=== PATIENT | female | born 1975 | race Caucasian/White ===

== ENCOUNTER → 2016-10-19 | Outpatient (CLI) | payer BC ==
--- NOTE | 2016-10-19 22:08 | MR ---
EXAMINATION TYPE: MR knee LT wo con DATE OF EXAM: 10/19/2016 8:44 PM COMPARISON: NONE HISTORY: Pain TECHNIQUE: Multiplanar, multisequence imaging of the left knee is performed without IV contrast. FINDINGS: MEDIAL MENISCUS: Extensive degeneration posterior horn medial meniscus without evidence for tear. LATERAL MENISCUS: Anterior and posterior horns are intact without tear. CRUCIATE LIGAMENTS: The anterior and posterior cruciate ligaments are intact and unremarkable. COLLATERAL LIGAMENTS: The medial collateral ligament and lateral collateral ligament complex are inta ct and unremarkable. EXTENSOR MECHANISM: Visualized quadriceps and patellar tendons are intact. EFFUSION: No significant suprapatellar joint effusion. POPLITEAL CYST: No popliteal/serrano cyst. TRICOMPARTMENT SPACES: Intact CARTILAGE: Intact BONE MARROW SIGNAL: No focal abnormal marrow signal is appreciated. OTHER: No additional significant abnormality is appreciated. IMPRESSION: Extensive degeneration posterior horn medial meniscus without evidence for tear. Otherwise unremarkab le.
== END | disposition home or self-care (01) ==
LOC: RADMRIMAIN 20:06
PROVIDERS: ATTEND Family Medicine
DX: M23.322 Other meniscus derangements, posterior horn of medial meniscus, left knee (principal)

== ENCOUNTER → 2017-01-07 | Outpatient (CLI) | payer BC ==
[2017-01-07 16:29] LABS: CH 32.1; CHCM 33.2; HCT 40.3 % (34.0-46.0); HDW 2.43; HGB 13.7 gm/dL (11.4-16.0); MCH 33.1 pg (25.0-35.0); MCHC 34.1 g/dL (31.0-37.0); MCV 97.3 fL (80.0-100.0); Mean Platelet Volume 6.9; RBC 4.14 m/uL (3.80-5.40); RDW 12.8 % (11.5-15.5); WBC 7.5 k/uL (3.8-10.6)
== END | disposition home or self-care (01) ==
LOC: LABPAT 15:40
PROVIDERS: ATTEND Otolaryngology
DX: Z01.812 Encounter for preprocedural laboratory examination (principal)
CPT/HCPCS: 85027

== ENCOUNTER 2017-01-11 10:01 | Day surgery (SDC) | payer BC ==
[2017-01-08 11:12] VITALS: BMI 25.0
--- NOTE | 2017-01-11 07:47 | HP ---
CHIEF COMPLAINT: Lesion on the right ear, suspect malignancy. HISTORY OF PRESENT ILLNESS: This patient is a pleasant 41-year-old female who was seen in my office recently for evaluation of a suspicious lesion of the right ear. This lesion has apparently been there for several months and the patient stated at times it is quite painful and she is not actually able to put pressure on the area when she sleeps at night. She denies that the area bleeds, but again states that it is extremely painful to touch. It has not been treated by her family physician with any type of medications. At the time patient was seen in my office clinical examination of the patient's right ear revealed a maculopapular well circumscribed scaly, extremely tender lesion on the superior helix of the patient's right ear. It is difficult to determine whether this lesion represents a malignancy or a benign lesion such as chondrodermatitis helicus. It is recommended the patient undergo a wedge excision of this lesion under general anesthesia. Past medical history reveals that the patient has ALLERGIES to certain antibiotics such as BACTRIM and also medications such as IBUPROFEN, TORADOL, AND ASPIRIN. Current medications include Xanax, Vicodin and Adipex. Previous surgeries include a hysterectomy, breast reduction, benign lymph node removed, appendectomy, bone spur removed, laparoscopic surgery, and benign breast biopsy. The review of systems is completely unremarkable. PHYSICAL EXAMINATION: This patient is a pleasant 41-year-old female who is alert and cooperative. HEENT: Patient is normocephalic. Tympanic membranes are normal. Middle ear space is free of any fluid or infection. Examination of the patient's right ear reveals that there is a maculopapular scaly extremely tender raised lesion located on the superior helical rim of the right ear. No other suspicious lesions are noted in the right or left ear. Tympanic membrane, middle ear spaces are free of any fluid or infection. Pupils equal, round and reactive to light and accommodation. Extraocular movements within normal limits. Intranasal examination reveals moderate septal deviation with compensatory hypertrophy of the inferior turbinates bilaterally. Examination of the oropharynx, cranial nerves II through XII and the remainder of the head and neck exam are unremarkable. CHEST AND CARDIOVASCULAR: Both lung mora are clear to percussion and auscultation. Patient is in regular sinus rhythm. S1, S2 are present without evidence of any murmurs, S3s, or S4s. Peripheral pulses are bilaterally symmetrical and within normal limits. ABDOMEN: There is no evidence of any masses, megaly or tenderness. The abdomen is soft. SKIN: Unremarkable. Musculoskeletal and neurological are within normal limits. Pelvic and Rectal exam are deferred at this time because the patient has this done on regular basis at her family physician's office. The remainder of the physical exam is unremarkable. IMPRESSION: Lesion of the superior helix of the right ear, suspect malignancy. PLAN: The patient is scheduled to undergo a wedge excision of lesion of the superior helix of the right ear under general anesthesia in the morning. Attention RNs in the presurgical area: I have not ordered any presurgical prophylactic antibiotics for this patient. I would like for the patient to receive 1000 mg of Ofirmev IV as soon as intravenous line has been established. I am not able to input orders into the system because the Hospital's [facility] System has malfunctioned. If the pharmacy department sends any presurgical prophylactic antibiotics to the presurgical area for this patient they should be cancelled and returned to the pharmacy department and make sure the patient' s account is credited appropriately. ( ) OSCAR
[~2017-01-11 10:01] MED LIST: DEXAMETHASONE SOD PHOSPHATE 10 MG/ML 1 ML VIAL IV ONE; HYDROmorphone 1 MG/ML 1 ML SYRINGE IVP PRN; LACTATED RINGERS 1,000 ML IV SCH; LIDOCAINE 1% 20 ML VIAL (10MG/ML) FOR IV START INTRADERMA PRN; ONDANSETRON 4 MG/2 ML VIAL IVP ONE; SCOPOLAMINE 1.5MG/72HR PATCH TRANSDERM ONE
[2017-01-11] MEDS ORDERED: ACETAMINOPHEN IV (For NPO) 1,000 MG in EMPTY BAG 1 BAG IVPB STA (10:10)
[2017-01-11 10:33] VITALS: RESP 18; TEMP 97.9
[2017-01-11 11:00] LABS: Glucose,Whole Blood 82 mg/dL (75-99)
[2017-01-11] MEDS ORDERED: LIDOCAINE 1% INJ 10MG/ML (20 ML MDV) ONE (11:55)
[2017-01-11] MEDS ORDERED: PROPOFOL 10 MG/ML 20 ML VIAL IV ONE (11:55)
[2017-01-11] MEDS ORDERED: ePHEDrine 50 MG/ML 1 ML AMP ONE (11:55)
[2017-01-11] MEDS ORDERED: fentaNYL (PF) 50 MCG/ML 2 ML AMP ONE (11:55)
[2017-01-11] MEDS ORDERED: MIDAZOLAM 2 MG/2 ML VIAL ONE (11:55)
[2017-01-11] MEDS ORDERED: PHENYLEPHRINE-0.9% NACL SYG 1 MG/10 ML SYRINGE ONE (11:55)
[2017-01-11] MEDS ORDERED: BUPIVACAINE (PF) 0.5% 30 ML VIAL SQ ONE ×2 (12:29)
[2017-01-11] MEDS ORDERED: BACITRACIN 500 UNIT/GM OINT 28.4 GM TUBE TOPICAL ONE (13:36)
[2017-01-11] MEDS ORDERED: LACTATED RINGERS 1,000 ML IV ONE (13:52)
[2017-01-11 14:18] VITALS: BP 117/65; PULSE 90
--- NOTE | 2017-01-12 05:13 | OP ---
DATE OF SURGERY: 01/11/2017 SURGEON: Devyn Maravilla MD PATIENT TRANSPORT ORDERLY: PREOPERATIVE DIAGNOSIS: A 4 mm lesion of the superior helix of the right ear. POSTOPERATIVE DIAGNOSIS: A 4 mm lesion of the superior helix of the right ear, final pathology pending. OPERATIVE PROCEDURE: Complete wedge excision of 4 mm lesion of the superior helix of the left ear with reconstruction via Angel's triangles. ANESTHESIA: General. COMPLICATIONS: None. ESTIMATED BLOOD LOSS: Less than 10 mL. OPERATIVE PROCEDURE: The patient was placed on the operating room table in supine position. After uneventful induction and endotracheal intubation, satisfactory general anesthesia was obtained. Next, the patient's right ear was draped and prepped in usual and customary fashion. Next, the lesion in question which was located on the superior helix of the right ear was examined and identified. It was decided to remove this lesion via a wedge excision. Therefore, using a ImpactRxman marking pen, the proposed wedge excision was designed so as to extend from the helical rim of the right down to the mid portion of the ( ). Next the propose Angel's triangles, which were to be excised were outlined in the usual fashion using the ImpactRxman marking pen. Next using a # 11 stab blade initially the wedge excision was performed by using a through-and- through incision from skin to skin beginning at the apex of the wedge working to the helical rim superiorly and subsequently doing the same along the inferior limb of the outlined incision. The wedge itself was sent to pathology , untagged, for final examination. Next, the Angel's triangles were excised using the #11 scalpel in the usual and customary fashion. Having done this, this allowed the ear to fall back into its natural position without any buckling or coning of the ear or cupping of the ear. The wound defect was closed in multiple layers using 5-0 rapid absorbing Vicryl to reapproximate the cartilage edges of the Angel's triangles and of the main incision. Next, the anterior skin was approximately using 5-0 rapid absorbing Vicryl in an interrupted buried fashion. Next, the helical rim was approximated exactly using 5-0 rapid absorbing Vicryl suture. The posterior skin was also approximated using 5-0 rapid absorbing Vicryl in an interrupted buried fashion. There were several small tears of the skin posteriorly and it was decided rather than attempt to repair these. These were appropriately brought together using the Dermabond tissue glue. Several additional 5-0 rapid absorbing sutures were placed in the helical rim in a buried interrupted fashion. At this point, the procedure was terminated. The cosmetic result of the resection and reconstruction was felt to be acceptable. Total operating time was approximately 1 hour and 35 minutes. The usual operating time for a lesion this size was approximately 35 to 40 minutes. The reason for the extended time was because of the reconstruction necessary using the Angel's triangles in an effort to bring the edges of the wound together without creating any type of cup defect or buckling of the cartilage. Estimated blood loss was less than 10 mL. The patient tolerated the procedure well and was returned to the recovery room in satisfactory condition. OSCAR
== END 2017-01-11 14:43 | disposition home or self-care (01) ==
LOC: OR 10:01
PROVIDERS: ATTEND Otolaryngology
DX: H61.001 Unspecified perichondritis of right external ear (principal); L57.8 Other skin changes due to chronic exposure to nonionizing radiation; M79.7 Fibromyalgia; M54.2 Cervicalgia; M54.9 Dorsalgia, unspecified; G89.29 Other chronic pain; Z88.6 Allergy status to analgesic agent; Z88.1 Allergy status to other antibiotic agents; Z88.5 Allergy status to narcotic agent; Z88.2 Allergy status to sulfonamides; Z79.891 Long term (current) use of opiate analgesic; Z79.899 Other long term (current) drug therapy
CPT/HCPCS: 88305; 11440; J2250; J1100; J2405; J2001; J3010; J0131; J2370; J2704

== ENCOUNTER → 2017-02-25 | Outpatient (CLI) | payer BC ==
[2017-02-25 17:09] LABS: Hepatitis B Surface Ag Index 0.05
[2017-02-25 17:15] LABS: Hepatitis B Core IgM Index 0.04
[2017-02-25 17:26] LABS: Hepatitis C Virus IgG Ab Negative (Negative); Hepatitis C Virus IgG Index 0.03
[2017-02-26 02:08] LABS: Treponemal Ab Non-Reactive (Non-Reactive)
== END | disposition home or self-care (01) ==
LOC: LABWHC1 16:08
PROVIDERS: ATTEND Obstetrics & Gynecology
DX: Z11.3 Encounter for screening for infections with a predominantly sexual mode of transmission (principal)
CPT/HCPCS: 36415; 80074; 86780; 87390

== ENCOUNTER → 2017-03-22 | Outpatient (CLI) | payer BC ==
--- NOTE | 2017-03-22 12:13 | XR ---
EXAMINATION TYPE: XR foot complete LT DATE OF EXAM: 03/22/2017 CLINICAL HISTORY: pain TECHNIQUE: Frontal, lateral and oblique images of the left foot are obtained. COMPARISON: None. FINDINGS: There is no acute fracture/dislocation evident. Mild hallux valgus deformity at the first metatarsophalangeal joint. The overlying soft tissue appears unremarkable. IMPRESSION: There is no acute fracture or dislocation. ICD 10 NO FRACTURE, INITIAL EVALUATION
== END | disposition home or self-care (01) ==
LOC: RADXRMAIN 11:54
PROVIDERS: ATTEND Podiatrist Foot Surgery
DX: M20.12 Hallux valgus (acquired), left foot (principal); M79.672 Pain in left foot

== ENCOUNTER → 2018-08-17 | Outpatient (CLI) | payer OTHER ==
--- NOTE | 2018-08-18 12:16 | MR ---
EXAMINATION TYPE: MR cervical spine wo con DATE OF EXAM: 08/17/2018 COMPARISON: 03/31/2016 HISTORY: Neck pain, headaches, dizziness, BUE numbness, hx of falls/whiplash TECHNIQUE: Multiplanar, multisequence images of the cervical spine were acquired. C2-C3: No evidence for degenerative disc disease. No disc bulge/herniation or protrusion. No Canal stenosis. Foramina are patent bilaterally. C3-C4: No evidence for degenerative disc disease. No disc bulge/herniation or protrusion. No Canal stenosis. Foramina are patent bilaterally. C4-C5: No evidence for degenerative disc disease. No disc bulge/herniation or protrusion. No Canal stenosis. Foramina are patent bilaterally. C5-C6: There is a right paracentral disc herniation measuring approximately 11 mm. There is distortio n of the thecal sac which appears similar to the prior exam. There are abuts the anterior margin the spinal cord with mild mass effect. Hypertrophic change of the uncovertebral joint on the right result s in mild right foraminal encroachment. C6-C7: Degenerative disc disease with broad-based central disc protrusion slightly greater paracentra lly to the left. There is mild effacement of thecal sac. No evidence of neural foraminal encroachment . Findings stable. C7-T1: Right paracentral disc herniation appears stable. Effaces the thecal sac. Neural foramina jaime in patent. No spinal cord contact. Findings stable. Cervical segments are intact. There is normal alignment. Cervical spinal cord is of normal signal. Craniovertebral junction relationships are within normal limits. IMPRESSION: 1. Multilevel degenerative disc disease is stable relative the prior exam. 2. Multilevel disc herniation or protrusions as discussed above also appears stable with the most mar ked findings at C5-C6 which abuts the anterior margin the spinal cord and does result in some mass ef fect upon the spinal cord which is similar to the prior exam.
== END | disposition home or self-care (01) ==
LOC: RADMRIMAIN 17:16
PROVIDERS: ATTEND Physical Medicine & Rehabilitation
DX: M50.222 Other cervical disc displacement at C5-C6 level (principal); M50.122 Cervical disc disorder at C5-C6 level with radiculopathy; G89.4 Chronic pain syndrome; M79.7 Fibromyalgia; F45.42 Pain disorder with related psychological factors
CPT/HCPCS: 72141

== ENCOUNTER → 2019-04-10 | Outpatient (CLI) | payer OTHER ==
--- NOTE | 2019-04-10 09:40 | MM ---
Reason for exam: history of breast augmentation, asymptomatic. Baseline mammogram. History: Patient had first child at age 34. Family history of breast cancer in paternal cousin and breast cancer in paternal aunt. Reductions of both breasts. Physical Findings: Nurse Summary: 1cm nodule in the left breast at 8 o'clock (nurse kp). MG 3D Diag Mammo W/Cad SAMIA Bilateral CC and MLO view(s) were taken. The breast tissue is heterogeneously dense. This may lower the sensitivity of mammography. Post mammoplasty changes. Bilateral areas of focal asymmetry persist to varying degrees with 3D. Palpable marker on the left along the lower inner quadrant. These results were verbally communicated with the patient and result sheet given to the patient on 04/10/19. ASSESSMENT: Incomplete: need additional imaging evaluation, BI-RAD 0 RECOMMENDATION: Ultrasound of both breasts.
--- NOTE | 2019-04-10 09:43 | USB ---
Reason for exam: additional evaluation requested from abnormal screening. History: Patient had first child at age 34. Family history of breast cancer in paternal cousin and breast cancer in paternal aunt. Reductions of both breasts. Physical Findings: Breast exam preformed at baseline screening. US Breast BILAT Right complete breast ultrasound includes all four quadrants, the retroareolar region and axilla. Finding demonstrates a 0.4 x 0.3 x 0.2cm cystic, benign lesion at 4 o'clock and a 0.4 x 0.3 x 0.2cm lymph node at 8 o'clock, questionable fatty hilum. Left complete breast ultrasound includes all four quadrants, the retroareolar region and axilla. Finding demonstrates no cystic or solid lesion seen. 6 month follow up recommended. These results were verbally communicated with the patient and result sheet given to the patient on 04/10/19. ASSESSMENT: Probably benign, BI-RAD 3 RECOMMENDATION: Follow-up diagnostic mammogram of both breasts in 6 months.
== END | disposition home or self-care (01) ==
LOC: RADMAMWWP 07:44
PROVIDERS: ATTEND Obstetrics & Gynecology
DX: R92.8 Other abnormal and inconclusive findings on diagnostic imaging of breast (principal); N64.4 Mastodynia; N63.24 Unspecified lump in the left breast, lower inner quadrant
CPT/HCPCS: 77062; 77066

== ENCOUNTER 2019-11-22 13:29 | Emergency (ER) | payer OTHER ==
[2019-11-22 13:52] VITALS: RESP 18
[2019-11-22] MEDS ORDERED: PANTOPRAZOLE 40 MG/10 ML VIAL IVP STA (14:08)
[2019-11-22] MEDS ORDERED: SODIUM CHLORIDE 0.9% 1,000 ML IV STA ×2 (14:08)
[2019-11-22] MEDS ORDERED: ONDANSETRON 4 MG/2 ML VIAL IVP STA (14:08)
--- NOTE | 2019-11-22 14:14 | ED ---
Abdominal Pain HPI - General Chief Complaint: Abdominal Pain Stated Complaint: abd pain/fever/dizziness Time Seen by Provider: 11/22/19 13:55 Source: patient, RN notes reviewed, old records reviewed Mode of arrival: ambulatory Limitations: no limitations - History of Present Illness Initial Comments: Iman is a 44-year-old female who presents emergency department today after a visit from a telemetry physician today with multiple complaints. She states she's had a fever off and on for the past 3 weeks, complains of some intermittent abdominal pain, with diarrhea and nausea. She also states that she had initially an upper eye infection that has now cleared up with the use of topical antibiotics a few weeks ago. She states that she was sent here for further evaluation due to persistent fever. She denies any known exposures to COVID contacts. Patient states that she does have a minor occasional cough. She is taking Motrin and Tylenol throughout the past 3 weeks almost daily. Her fevers have been on 100.4. She also reports that she has a splatter pattern of her rash over her abdomen down her leg for one week. She denies any exposure that she is aware of chemicals. She was working with a pool. Patient states that the rash is so mewhat puritic. - Related Data Home Medications Medication Instructions Recorded Confirmed ALPRAZolam 0.5 mg PO BID PRN 04/25/15 01/08/17 Acetaminophen Tab [Tylenol Tab] 650 mg PO Q4H PRN 01/08/17 01/08/17 Phentermine HCl [Adipex-P] 37.5 mg PO QAM 01/08/17 01/08/17 oxyCODONE-APAP 7.5-325MG [Percocet 1 tab PO Q6H PRN 01/08/17 01/08/17 7.5-325 mg] Previous Rx's Medication Instructions Recorded Mupirocin 2% Oint [Bactroban 2% 1 applic TOPICAL TID #60 gm 11/22/19 Oint] Ondansetron Odt [Zofran Odt] 4 mg PO Q8HR PRN #12 tab 11/22/19 Allergies Allergy/AdvReac Type Severity Reaction Status Date / Time aspirin Allergy Anaphylaxis Verified 11/22/19 13:52 ketorolac tromethamine Allergy Dyspnea Verified 11/22/19 13:52 [From Toradol] sulfamethoxazole Allergy Dyspnea, Verified 11/22/19 13:52 [From Bactrim] RASH trimethoprim [From Bactrim] Allergy Dyspnea, Verified 11/22/19 13:52 RASH Review of Systems ROS Statement: Those systems with pertinent positive or pertinent negative responses have been documented in the HPI. ROS Other: All systems not noted in ROS Statement are negative. Past Medical History Past Medical History: Cancer, Fibromyalgia, Musculoskeletal Disorder Additional Past Medical History / Comment(s): PRE-CA UTERUS, SKIN CA. CHRONIC Neck, Back Pain. VARICOSE VEINS. PAIN RT EAR D/T CHONDRODERMATITIS. History of Any Multi-Drug Resistant Organisms: None Reported Past Surgical History: Appendectomy, Breast Surgery, Hysterectomy, Orthopedic Surgery, Uterine Ablation Additional Past Surgical History / Comment(s): RT WRIST; EXC LUMP NECK. LAPAROSCOPIC PROC. BREAST REDUCTION. Past Anesthesia/Blood Transfusion Reactions: Motion Sickness, Postoperative Nausea & Vomiting (PONV) Past Psychological History: No Psychological Hx Reported Smoking Status: Never smoker Past Alcohol Use History: Occasional Past Drug Use History: None Reported - Past Family History Mother Family Medical History: Cancer Father Family Medical History: Deep Vein Thrombosis (DVT) General Exam - General Exam Comments Initial Comments: This is alert and oriented 44-year-old male. No significant distress. Limitations: no limitations General appearance: alert, in no apparent distress Head exam: Present: atraumatic, normocephalic, normal inspection Eye exam: Present: normal appearance, PERRL, EOMI. Absent: scleral icterus, conjunctival injection, periorbital swelling ENT exam: Present: normal exam, mucous membranes moist Neck exam: Present: normal inspection. Absent: tenderness, meningismus, lymphadenopathy Respiratory exam: Present: normal lung sounds bilaterally Cardiovascular Exam: Present: regular rate GI/Abdominal exam: Present: soft, normal bowel sounds, other (darkened splattered pattern erythematous rash with area of central desquamation measuring 4cm by 4cm. ). Absent: distended, tenderness, guarding, rebound, rigid Extremities exam: Present: normal inspection, full ROM, normal capillary refill. Absent: tenderness, pedal edema, joint swelling, calf tenderness Back exam: Present: normal inspection, full ROM Neurological exam: Present: alert, oriented X3, CN II-XII intact Psychiatric exam: Present: normal affect, normal mood Skin exam: Present: warm, dry, intact, normal color. Absent: rash Course Vital Signs 11/22/19 13:49 Temperature 98.3 F Pulse Rate 73 Respiratory 18 Rate Blood Pressure 112/73 O2 Sat by Pulse 100 Oximetry Medical Decision Making - Medical Decision Making This is a well-appearing 44-year-old female who presents emergency department today for multiple complaints. She is complaining of intermittent fever for 3 weeks, nausea and stomach as well as minor cough. She states that she was somewhat concerning for Coban. Patient did have Coban swab labwork completed today. Laboratory was reviewed and relatively unremarkable. She initially had an elevated potassium at the scene moist. Redraw was 4.4. Urine sample will have urine culture completed was a blood culture was completed. Patient's CBC is unremarkable. Chest x-ray was clear and KUB shows a normal bowel gas pattern with moderate stool in the right side. She has no guarding or rigidity or tenderness. Excess at this time with lab values being normal that Patient follow up with her primary care doctor for further evaluation any worsening signs or symptoms occur to return. Patient is agreeable to this. She does have this area of rash which seems consistent with a chemical burn over her abdomen splatter-like pattern. She was working with chemicals. Discussed using antibiotic ointment over the area just following up with primary care doctor's well. Patient is understand treatment plan will comply. Return parameters were discussed. - Lab Data Result diagrams: 11/22/19 14:45 11/22/19 16:00 Lab Results 11/22/19 11/22/19 11/22/19 Range/Units 14:45 14:45 14:45 WBC 6.4 (3.8-10.6) k/uL RBC 4.54 (3.80-5.40) m/uL Hgb 14.3 (11.4-16.0) gm/dL Hct 43.8 (34.0-46.0) % MCV 96.7 (80.0-100.0) fL MCH 31.4 (25.0-35.0) pg MCHC 32.5 (31.0-37.0) g/dL RDW 12.9 (11.5-15.5) % Plt Count 295 (150-450) k/uL Neutrophils % 57 % Lymphocytes % 32 % Monocytes % 5 % Eosinophils % 3 % Basophils % 1 % Neutrophils # 3.6 (1.3-7.7) k/uL Lymphocytes # 2.1 (1.0-4.8) k/uL Monocytes # 0.3 (0-1.0) k/uL Eosinophils # 0.2 (0-0.7) k/uL Basophils # 0.0 (0-0.2) k/uL Sodium 135 L (137-145) mmol/L Potassium 6.5 H* (3.5-5.1) mmol/L Chloride 104 (98-107) mmol/L Carbon Dioxide 24 (22-30) mmol/L Anion Gap 7 mmol/L BUN 18 H (7-17) mg/dL Creatinine 0.70 (0.52-1.04) mg/dL Est GFR (CKD-EPI)AfAm >90 (>60 ml/min/1.73 sqM) Est GFR (CKD-EPI)NonAf >90 (>60 ml/min/1.73 sqM) Glucose 96 (74-99) mg/dL Plasma Lactic Acid Tc (0.7-2.0) mmol/L Calcium 9.9 (8.4-10.2) mg/dL Magnesium 2.0 (1.6-2.3) mg/dL Total Bilirubin 1.1 (0.2-1.3) mg/dL AST 39 H (14-36) U/L ALT 17 (4-34) U/L Alkaline Phosphatase 32 L (38-126) U/L Lactate Dehydrogenase 841 H (313-618) U/L Troponin I <0.012 (0.000-0.034) ng/mL C-Reactive Protein <5.0 (<10.0) mg/L Total Protein 8.5 H (6.3-8.2) g/dL Albumin 5.0 (3.5-5.0) g/dL Amylase 46 (30-110) U/L Lipase 74 (23-300) U/L Urine Color Urine Appearance (Clear) Urine pH (5.0-8.0) Ur Specific [place] (1.001-1.035) Urine Protein (Negative) Urine Glucose (UA) (Negative) Urine Ketones (Negative) Urine Blood (Negative) Urine Nitrite (Negative) Urine Bilirubin (Negative) Urine Urobilinogen (<2.0) mg/dL Ur Leukocyte Esterase (Negative) Urine WBC (0-5) /hpf Ur Squamous Epith Cells (0-4) /hpf Urine Bacteria (None) /hpf Urine Mucus (None) /hpf 11/22/19 11/22/19 11/22/19 Range/Units 14:45 15:05 16:00 WBC (3.8-10.6) k/uL RBC (3.80-5.40) m/uL Hgb (11.4-16.0) gm/dL Hct (34.0-46.0) % MCV (80.0-100.0) fL MCH (25.0-35.0) pg MCHC (31.0-37.0) g/dL RDW (11.5-15.5) % Plt Count (150-450) k/uL Neutrophils % % Lymphocytes % % Monocytes % % Eosinophils % % Basophils % % Neutrophils # (1.3-7.7) k/uL Lymphocytes # (1.0-4.8) k/uL Monocytes # (0-1.0) k/uL Eosinophils # (0-0.7) k/uL Basophils # (0-0.2) k/uL Sodium (137-145) mmol/L Potassium 4.4 (3.5-5.1) mmol/L Chloride (98-107) mmol/L Carbon Dioxide (22-30) mmol/L Anion Gap mmol/L BUN (7-17) mg/dL Creatinine (0.52-1.04) mg/dL Est GFR (CKD-EPI)AfAm (>60 ml/min/1.73 sqM) Est GFR (CKD-EPI)NonAf (>60 ml/min/1.73 sqM) Glucose (74-99) mg/dL Plasma Lactic Acid Tc 0.9 (0.7-2.0) mmol/L Calcium (8.4-10.2) mg/dL Magnesium (1.6-2.3) mg/dL Total Bilirubin (0.2-1.3) mg/dL AST (14-36) U/L ALT (4-34) U/L Alkaline Phosphatase (38-126) U/L Lactate Dehydrogenase (313-618) U/L Troponin I (0.000-0.034) ng/mL C-Reactive Protein (<10.0) mg/L Total Protein (6.3-8.2) g/dL Albumin (3.5-5.0) g/dL Amylase (30-110) U/L Lipase (23-300) U/L Urine Color Light Yellow Urine Appearance Clear (Clear) Urine pH 6.0 (5.0-8.0) Ur Specific [place] 1.009 (1.001-1.035) Urine Protein Negative (Negative) Urine Glucose (UA) Negative (Negative) Urine Ketones Negative (Negative) Urine Blood Trace H (Negative) Urine Nitrite Negative (Negative) Urine Bilirubin Negative (Negative) Urine Urobilinogen <2.0 (<2.0) mg/dL Ur Leukocyte Esterase Negative (Negative) Urine WBC 1 (0-5) /hpf Ur Squamous Epith Cells 3 (0-4) /hpf Urine Bacteria Occasional H (None) /hpf Urine Mucus Rare H (None) /hpf 11/22/19 15:16 EKG performed at 1500 and shows normal sinus rhythm and normal EKG. Ventricular rate of 64 bpm. TN interval is 126 ms. QRS duration 74 ms. QT QTc is 398/410 ms. - Radiology Data Radiology results: report reviewed Chest x-ray is negative for any acute cardiopulmonary process. No evidence of free air or bowel obstruction. Mild stool in the right side of the abdomen. Disposition Clinical Impression: Chemical burn, Nausea, Hx of fever Disposition: HOME SELF-CARE Condition: Good Instructions (If sedation given, give patient instructions): Acute Nausea and Vomiting (ED) Additional Instructions: Patient is close follow-up with primary care physician in regards to cultures. Return to the emergency department if any alarming signs or symptoms occur. Prescriptions: Mupirocin 2% Oint [Bactroban 2% Oint] 1 applic TOPICAL TID #60 gm Ondansetron Odt [Zofran Odt] 4 mg PO Q8HR PRN #12 tab PRN Reason: Nausea Is patient prescribed a controlled substance at d/c from ED?: No Referrals: Yan Bolton DO [Primary Care Provider] - 1-2 days Time of Disposition: 16:46
[2019-11-22 15:04] LABS: Basophils % (A) 1 %; Eosinophils # (A) 0.2 k/uL (0-0.7); Eosinophils % (A) 3 %; HCT 43.8 % (34.0-46.0); HGB 14.3 gm/dL (11.4-16.0); Lymphocytes # (A) 2.1 k/uL (1.0-4.8); Lymphocytes % (A) 32 %; MCH 31.4 pg (25.0-35.0); MCHC 32.5 g/dL (31.0-37.0); MCV 96.7 fL (80.0-100.0); Mean Platelet Volume 6.7; Monocytes # (A) 0.3 k/uL (0-1.0); Monocytes % (A) 5 %; Neutrophils # (A) 3.6 k/uL (1.3-7.7); Neutrophils % (A) 57 %; Platelet Count 295 k/uL (150-450); RBC 4.54 m/uL (3.80-5.40); RDW 12.9 % (11.5-15.5); WBC 6.4 k/uL (3.8-10.6)
[2019-11-22 15:16] LABS: ALT 17 U/L (4-34); AST 39 U/L (14-36); African American GFR (CKD) >90 (>60 ml/min/1.73 sqM); Alkaline Phosphatase 32 U/L (38-126); Amylase 46 U/L (30-110); Anion Gap 7 mmol/L; Blood Urea Nitrogen 18 mg/dL (7-17); C Reactive Protein <5.0 mg/L (<10.0); Calcium 9.9 mg/dL (8.4-10.2); Carbon Dioxide 24 mmol/L (22-30); Chloride 104 mmol/L (98-107); Glucose 96 mg/dL (74-99); LDH 841 U/L (313-618); Non-African American GFR(CKD) >90 (>60 ml/min/1.73 sqM); Sodium 135 mmol/L (137-145); Total Bilirubin 1.1 mg/dL (0.2-1.3); Total Protein 8.5 g/dL (6.3-8.2)
[2019-11-22 15:18] LABS: Potassium 6.5 mmol/L (3.5-5.1)
[2019-11-22 15:19] LABS: Appearance,Urine Clear (Clear); Bacteria,Urine Occasional /hpf; Bilirubin,Urine Negative (Negative); Blood,Urine Trace (Negative); Color,Urine Light Yellow; Glucose,Urine (UA) Negative (Negative); Ketones,Urine Negative (Negative); Leukocyte Esterase,Urine Negative (Negative); Mucus,Urine Rare /hpf; Nitrite,Urine Negative (Negative); Protein,Urine Negative (Negative); Specific Gravity,Urine 1.009 (1.001-1.035); Squamous Epithelial Cell,Urine 3 /hpf (0-4); Urobilinogen,Urine <2.0 mg/dL (<2.0); WBC,Urine 1 /hpf (0-5)
--- NOTE | 2019-11-22 15:22 | XR ---
EXAMINATION TYPE: XR chest 2V DATE OF EXAM: 11/22/2019 COMPARISON: None HISTORY: 44-year-old female with abdominal pain TECHNIQUE: PA and lateral views FINDINGS: The cardiomediastinal silhouette, aorta, and pulmonary vasculature are within normal limits. Lungs an d pleural spaces are clear. IMPRESSION: No acute cardiopulmonary process.
--- NOTE | 2019-11-22 15:22 | XR ---
EXAMINATION TYPE: XR KUB DATE OF EXAM: 11/22/2019 Comparison: 04/25/2015 Clinical History: 44-year-old female abdominal pain Findings: Lung bases are clear. No evidence for free intraperitoneal air. No dilated small bowel or air-fluid levels. Mild stool within the right side of the abdomen. Scattered air seen throughout the colon extending di stally to the rectum. Stable phlebolith in the left side of the pelvis. Impression: No evidence for free air or bowel obstruction. Mild stool in the right side of the abdomen.
[2019-11-22] MEDS ORDERED: SODIUM CHLORIDE 0.9% 1,000 ML IV ONE (16:00)
[2019-11-22 18:05] VITALS: BP 109/67; PULSE 77; TEMP 98.5
[2019-11-23 00:28] LABS: Ferritin 226.1 ng/mL (10.0-291.0)
== END 2019-11-22 17:30 | disposition home or self-care (01) ==
LOC: EC 13:29
DX: R11.0 Nausea (principal); R50.9 Fever, unspecified; R05 Cough; E87.5 Hyperkalemia; T21.42XA Corrosion of unspecified degree of abdominal wall, initial encounter; Z88.6 Allergy status to analgesic agent; Z88.2 Allergy status to sulfonamides; Z88.1 Allergy status to other antibiotic agents; Z85.828 Personal history of other malignant neoplasm of skin; Z98.890 Other specified postprocedural states; Z20.828 Contact with and (suspected) exposure to other viral communicable diseases
CPT/HCPCS: 36415; 93005; 80053; 82728; 82150; 83605; 83615; 83690; 83735; 84132; 84484; 85025; 86140; 81001; 87040; 84145; 71046; 74018; 99284; 96374; 96375; 96361 ×2; U0003; J2405; C9113

== ENCOUNTER → 2020-08-07 | Outpatient (CLI) | payer OTHER ==
--- NOTE | 2020-08-07 23:09 | MR ---
EXAMINATION TYPE: MR knee RT wo con DATE OF EXAM: 08/07/2020 COMPARISON: None HISTORY: Right knee pain for over a month. Fell down stairs. TECHNIQUE: Multiplanar, multisequence imaging of the right knee is performed without IV contrast. FINDINGS: MEDIAL MENISCUS: There is linear signal within the posterior horn medial meniscus. This does not comm unicate with an articular surface. Internal tear type I may be present. Degenerative changes consider ed less likely. LATERAL MENISCUS: Anterior and posterior horns are intact without tear. CRUCIATE LIGAMENTS: The anterior and posterior cruciate ligaments are intact and unremarkable. COLLATERAL LIGAMENTS: The medial collateral ligament and lateral collateral ligament complex are inta ct and unremarkable. EXTENSOR MECHANISM: Visualized quadriceps and patellar tendons are intact. EFFUSION: There is a small suprapatellar joint effusion. POPLITEAL CYST: No popliteal/serrano cyst. TRICOMPARTMENT SPACES: There may be minimal narrowing of the medial compartment joint space. Lateral compartment and patellofemoral compartments appear preserved. CARTILAGE: Mild thinning of the articular cartilage of the medial compartment joint space may be pres ent. Correlate for mild osteoarthritis. BONE MARROW SIGNAL: No focal abnormal marrow signal is appreciated. OTHER: No additional significant abnormality is appreciated. IMPRESSION: Type I tear posterior horn medial meniscus. No communication with the articular surface is present. 2. Small joint effusion. 3. There may be some mild early osteoarthritic degenerative change medial compartment.
== END | disposition home or self-care (01) ==
LOC: RADMRIMAIN 19:50
PROVIDERS: ATTEND Orthopaedic Surgery Sports Medicine
DX: S83.241A Other tear of medial meniscus, current injury, right knee, initial encounter (principal); M25.461 Effusion, right knee

== ENCOUNTER 2020-09-19 13:56 | Emergency (ER) | payer OTHER ==
--- NOTE | 2020-09-19 14:09 | ED ---
SOB HPI - General Source: patient, RN notes reviewed Mode of arrival: ambulatory Limitations: no limitations <Addison Cortes - Last Filed: 09/19/20 14:07> <Lyssa Jewell - Last Filed: 09/19/20 23:19> - General Chief Complaint: Shortness of Breath Stated Complaint: Chest Pain,SOB,Cough Time Seen by Provider: 09/19/20 14:03 - History of Present Illness Initial Comments: This is a 45-year-old female presents emergency Department chief complaint cough congestion fever bodyaches. Patient states symptoms started 3 days ago. Patient states that her daughter is positive for covid. Patient states that she has pain diffusely. Patient states that she took her pain meds this morning but states that it did not help. Patient states that she just feels very miserable she has worsening symptoms. (Addison Cortes) - Related Data Home Medications Medication Instructions Recorded Confirmed Acetaminophen Tab [Tylenol Tab] 1,500 mg PO Q6HR PRN 09/19/20 09/19/20 Baclofen 5 mg PO TID 09/19/20 09/19/20 Esomeprazole Magnesium 40 mg PO DAILY 09/19/20 09/19/20 SUMAtriptan SUCCINATE [Imitrex] 100 mg PO BID PRN 09/19/20 09/19/20 clonazePAM [KlonoPIN] 1 mg PO HS PRN 09/19/20 09/19/20 oxyCODONE-APAP 10-325MG [Percocet 1 tab PO BID PRN 09/19/20 09/19/20 10-325 mg] Allergies Allergy/AdvReac Type Severity Reaction Status Date / Time prednisone Allergy Severe Rash/Hives, Verified 09/19/20 16:48 Shortness of breath aspirin Allergy Anaphylaxis Verified 09/19/20 14:05 azithromycin Allergy Rash/Hives Verified 09/19/20 16:48 ibuprofen Allergy Rash/Hives Verified 09/19/20 14:06 ketorolac tromethamine Allergy Dyspnea Verified 09/19/20 14:05 [From Toradol] methylprednisolone Allergy Anaphylaxis Verified 09/19/20 16:48 sulfamethoxazole Allergy Dyspnea, Verified 09/19/20 14:05 [From Bactrim] RASH trimethoprim [From Bactrim] Allergy Dyspnea, Verified 09/19/20 14:05 RASH Review of Systems ROS Other: All systems not noted in ROS Statement are negative. <Addison Cortes - Last Filed: 09/19/20 14:07> ROS Other: All systems not noted in ROS Statement are negative. <Misa Jewellah Karolyn - Last Filed: 09/19/20 23:19> ROS Statement: Those systems with pertinent positive or pertinent negative responses have been documented in the HPI. Past Medical History Past Medical History: Cancer, Fibromyalgia, Musculoskeletal Disorder Additional Past Medical History / Comment(s): PRE-CA UTERUS, SKIN CA. CHRONIC Neck, Back Pain. VARICOSE VEINS. PAIN RT EAR D/T CHONDRODERMATITIS. History of Any Multi-Drug Resistant Organisms: None Reported Past Surgical History: Appendectomy, Breast Surgery, Hysterectomy, Orthopedic Surgery, Uterine Ablation Additional Past Surgical History / Comment(s): RT WRIST; EXC LUMP NECK. LA PAROSCOPIC PROC. BREAST REDUCTION. Past Anesthesia/Blood Transfusion Reactions: Motion Sickness, Postoperative Nausea & Vomiting (PONV) Past Psychological History: No Psychological Hx Reported Smoking Status: Never smoker Past Alcohol Use History: Occasional Past Drug Use History: None Reported - Past Family History Mother Family Medical History: Cancer Father Family Medical History: Deep Vein Thrombosis (DVT) <Addison Cortes - Last Filed: 09/19/20 14:07> General Exam Limitations: no limitations <Addison Cortes - Last Filed: 09/19/20 14:07> Course Vital Signs 09/19/20 09/19/20 09/19/20 14:01 16:53 17:40 Temperature 98.8 F 98.9 F Pulse Rate 95 89 Respiratory 24 18 18 Rate Blood Pressure 106/69 130/89 O2 Sat by Pulse 99 99 Oximetry Medical Decision Making <Lyssa Jewell - Last Filed: 09/19/20 23:19> - Medical Decision Making Upon arrival patient is placed into room 26. Thorough history and physical exam is performed. Patient was swabbed for Covid and sent for chest x-ray. Covid is positive. Chest x-ray demonstrates no acute process. Results are discussed the patient. Patient is given a dose of Reglan for her nausea. She is also given a dose of morphine for pain control. Patient will be discharged home. Instructed to buy a pulse ox and return to the emergency room for any new or worsening symptoms. She is to quarantine for 14 days or until her symptoms improved. She discharged home in stable condition (Lyssa Jewell) - Lab Data Lab Results 09/19/20 Range/Units 14:06 Coronavirus (PCR) Detected A (Not Detectd) - EKG Data EKG Comments: EKG demonstrates normal sinus rhythm with ventricular rate of 83. CO interval 122. QRS 74. QTC of 437. No acute ST segment elevations or depressions (Lyssa Jewell) Disposition <Addison Cortes - Last Filed: 09/19/20 14:07> Is patient prescribed a controlled substance at d/c from ED?: No Time of Disposition: 17:31 <Lyssa Jewell - Last Filed: 09/19/20 23:19> Clinical Impression: COVID-19 Disposition: HOME SELF-CARE Condition: Stable Instructions (If sedation given, give patient instructions): Coronavirus Disease 2019 (COVID-19) Additional Instructions: You have Covid. Quarantine for 14 days or until your symptoms improve. Follow up with your primary care doctor. Take your Percocet for fevers (it has tylenol in it). Return to the emergency department for any new or worsening symptoms, especially if your pulse ox falls below 90% Referrals: Yan Bolton DO [Primary Care Provider] - 1-2 days
--- NOTE | 2020-09-19 14:34 | XR ---
EXAMINATION TYPE: XR chest 2V DATE OF EXAM: 09/19/2020 COMPARISON: 11/22/19 HISTORY: Chest pain TECHNIQUE: Frontal and lateral views of the chest are obtained. FINDINGS: There is no focal air space opacity. No evidence for pneumothorax. No pleural effusion. The cardiac silhouette size is within normal limits. The osseous structures are grossly intact. IMPRESSION: 1. No acute cardiopulmonary process.
[2020-09-19] MEDS ORDERED: ONDANSETRON ODT 4 MG TAB PO STA (16:33)
[2020-09-19] MEDS ORDERED: MORPHINE SULFATE 4 MG/ML SYRINGE IM STA (16:34)
[2020-09-19 16:54] VITALS: RESP 18
[2020-09-19 18:06] VITALS: BP 130/89; PULSE 89; TEMP 98.9
== END 2020-09-19 17:45 | disposition home or self-care (01) ==
LOC: EC 13:56
DX: U07.1 COVID-19 (principal); M79.7 Fibromyalgia; Z88.0 Allergy status to penicillin; Z88.1 Allergy status to other antibiotic agents; Z88.2 Allergy status to sulfonamides; Z88.6 Allergy status to analgesic agent; Z88.8 Allergy status to other drugs, medicaments and biological substances; Z85.828 Personal history of other malignant neoplasm of skin; Z90.49 Acquired absence of other specified parts of digestive tract; Z90.710 Acquired absence of both cervix and uterus
CPT/HCPCS: 93005; 87635; 71046; 99285; 96372; J2270

== ENCOUNTER → 2021-05-19 | Outpatient (CLI) | payer OTHER ==
--- NOTE | 2021-05-19 17:18 | MR ---
MRI CERVICAL SPINE: CLINICAL HISTORY: Radiculopathy. Neck pain into both shoulders. TECHNIQUE: Multiplanar, multisequence imaging of the cervical spine is performed without IV contrast. COMPARISON: MRI cervical spine August 17, 2018. Findings: Sagittal images of the cervical spine show the craniocervical junction to remain within nor mal limits. The cervical and upper thoracic spinal cord remains normal in caliber and signal. Verte bral alignment is stable with some loss of normal cervical curvature and slight grade 1 retrolisthesi s C5 on C6. The vertebral body height remain normal. Mild disc space narrowing C6-C7 levels is redem onstrated. Mild multilevel anterior spurring is again seen. The bone marrow signal intensity is w ithin normal limits. Axial images show the C2-C3, C3-C4, and the C4-C5 levels to all remain within normal limits. Axial images at C5-C6 level show more prominent central disc protrusion effacing the anterior thecal sac axial image 25, patent bilateral neural foramina are noted. Axial images at the C6-C7 level show stable small left paracentral disc protrusion effacing anterolat eral thecal sac, patent bilateral neural foramina are redemonstrated. Axial images at C7-T1 level show stable right paracentral disc protrusion mildly effacing anterolater al thecal sac , bilateral neural foramina are patent. New posterior annular tear noted. IMPRESSION: More prominent disc herniation C5-C6 level. New Annular tear C7-T1 level
--- NOTE | 2021-05-20 03:27 | MR ---
EXAMINATION TYPE: MR shoulder RT wo con DATE OF EXAM: 05/19/2021 COMPARISON: None HISTORY: Right shoulder pain and limited range of movement for 4-5 months. Multiplanar multiecho imaging of the right shoulder without contrast. Subscapularis tendon is intact. Biceps tendon is intact. There is deformity of the anterior glenoid l abrum with fluid on the medial aspect. There is small amount of fluid adjacent to the subscapularis tendon at the greater tuberosity of the humerus. There is no retraction. I see no full-thickness tear. There is no evidence of a fracture. AC joint is intact. There is no significant subacromial impingeme nt. IMPRESSION: Mild increased signal in the supraspinatus tendon consistent with some tendinitis. No full-thickness tear. No subacromial impingement. Deformity of the anterior glenoid labrum suggestive of a tear.
== END | disposition home or self-care (01) ==
LOC: RADMRIMAIN 14:43
PROVIDERS: ATTEND Family Medicine
DX: M75.101 Unspecified rotator cuff tear or rupture of right shoulder, not specified as traumatic (principal); M54.12 Radiculopathy, cervical region; M50.222 Other cervical disc displacement at C5-C6 level; M50.33 Other cervical disc degeneration, cervicothoracic region
CPT/HCPCS: 72141

== ENCOUNTER → 2021-08-18 | Outpatient (CLI) | payer OTHER ==
--- NOTE | 2021-08-19 08:16 | MR ---
EXAMINATION TYPE: MR knee LT wo con DATE OF EXAM: 08/18/2021 COMPARISON: Prior left knee MRI 10/19/2016 HISTORY: L knee derangment, medial knee pain TECHNIQUE: Multiplanar, multisequence imaging of the left knee is performed without IV contrast. FINDINGS: There is some motion on the exam. MEDIAL MENISCUS: Anterior and posterior horns are intact without tear. LATERAL MENISCUS: Anterior and posterior horns are intact without tear. CRUCIATE LIGAMENTS: The anterior and posterior cruciate ligaments are intact and unremarkable. COLLATERAL LIGAMENTS: The medial collateral ligament and lateral collateral ligament complex are inta ct and unremarkable. EXTENSOR MECHANISM: Visualized quadriceps and patellar tendons are intact. EFFUSION: There is a small suprapatellar joint effusion POPLITEAL CYST: No popliteal/serrano cyst. TRICOMPARTMENT SPACES: Maintained CARTILAGE: There may be some chondromalacia along the medial femoral condyle, details obscured by mot ion BONE MARROW SIGNAL: Subchondral increased signal seen at the inferior posterior patella, axial image #24 of series 701 OTHER: There may be some mild osteoarthritis, there is a joint effusion IMPRESSION: There is motion on exam somewhat limiting evaluation. There may be some mild osteoarthritis. Of note the medial collateral ligament showed partial tear on previous MRI and is improved as compared to carly or exam. Possible small subchondral bone contusion posterior patella
== END | disposition home or self-care (01) ==
LOC: RADMRIMAIN 10:54
PROVIDERS: ATTEND Family Medicine
DX: M23.92 Unspecified internal derangement of left knee (principal)

== ENCOUNTER → 2021-11-12 | Outpatient (CLI) | payer OTHER ==
--- NOTE | 2021-11-13 00:36 | MR ---
EXAMINATION TYPE: MR iac wo/w con DATE OF EXAM: 11/12/2021 COMPARISON: 01/23/2013 HISTORY: Vertigo, headaches, recent seizures. CONTRAST: Standard multiplanar, multisequence MRI departmental protocol images were obtained without contrast a nd with 7.5 mL intravenous Gadavist gadolinium contrast. Ventricles and sulci appear normal. There is no mass effect or midline shift. No evidence of intracra nial hemorrhage. No evidence of cerebral edema. Diffusion images show no sign of acute infarct. Corpus callosum is intact. Brainstem is intact. Sella turcica appears normal. There is no evidence of orbital mass. Internal auditory canals appear normal. The acoustic nerve and vestibular nerve appear normal. There is no evidence of cerebellopontine angle mass. The contrast images show no pathologic enhancement. Ce rebellum appears normal. IMPRESSION: Negative MR scan of the brain. Normal internal auditory canal exam. No focal posterior fossa abnormal ity. No adverse change compared to old exam.
== END | disposition home or self-care (01) ==
LOC: RADMRIMAIN 21:17
PROVIDERS: ATTEND Otolaryngology
DX: R42 Dizziness and giddiness (principal)
CPT/HCPCS: 70553; A9585

== ENCOUNTER → 2023-02-15 | Outpatient (CLI) | payer BC ==
--- NOTE | 2023-02-15 18:06 | MR ---
EXAMINATION TYPE: MR angio head wo con DATE OF EXAM: 02/15/2023 12:38 PM CLINICAL INDICATION:Female, 47 years old with history of R06.00 DYSPNEA, UNSPECIFIED; COMPARISON: MRA brain 05/20/2022. Technical: 3-D [id number] Axial with MIP reconstruction created on a separate workstation.. IV Contrast: None Findings: Vertebral arteries: The vertebral arteries are patent. Vertebral arteries are: Codominant. Basilar artery: The basilar artery is intact. The basilar artery bifurcation is normal. Internal Carotid arteries: The cervical, petrous, cavernous and supraclinoid segments are normal. NEDA: Patent with no evidence of aneurysm. ACOM: Present without evidence of aneurysm. MCA: Left M1 segment of the MCA 2 mm aneurysm off the posterior aspect visualized on MIP imaging. Pat ent with no evidence of aneurysm. DETECTIVE CHIEF: Patent with no evidence of aneurysm. PCOM: Hypoplastic bilaterally. 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 If a report from the prior exam is a vailable a comparison from specific region can be performed. No evidence high-grade stenosis.
== END | disposition home or self-care (01) ==
LOC: RADMRIMAIN 11:42
PROVIDERS: ATTEND Family Medicine
DX: I67.1 Cerebral aneurysm, nonruptured (principal); R06.00 Dyspnea, unspecified
CPT/HCPCS: 70544

== ENCOUNTER 2023-05-07 16:33 | Emergency (ER) | payer BC, MEDICARE ==
[2023-05-07 16:57] VITALS: TEMP 98.5
--- NOTE | 2023-05-07 16:57 | ED ---
Headache HPI - General Mode of arrival: ambulatory Limitations: no limitations <Suzan Olivas - Last Filed: 05/07/23 16:54> - General Source: patient, RN notes reviewed Mode of arrival: ambulatory Limitations: no limitations <Beatriz Hutchison - Last Filed: 05/09/23 11:26> - General Chief Complaint: Headache Stated Complaint: migraine hx of aneurysm Time Seen by Provider: 05/07/23 16:55 - History of Present Illness Initial Comments: Patient is a 47-year-old female presented ER chief complaint of a headache. Patient has a past medical history significant for a brain aneurysm. Patient states she's had a headache since last Wednesday. Patient endorses associated nausea. (Suzan Olivas) 47-year-old female presents to the emergency department with chief complaint of migraine. She does have a history of migraine headaches. She states that this has been going on since Wednesday. She typically does not have migraines that last this long. She does admit to nausea without vomiting. She does admit to photophobia. This is typical of her migraines. She does report a history of a small 2 mm brain aneurysm. Denies thunderclap headache, fever, chills. (Beatriz Hutchison) - Related Data Home Medications Medication Instructions Recorded Confirmed Acetaminophen Tab [Tylenol Tab] 1,500 mg PO Q6HR PRN 09/19/20 09/19/20 Baclofen 5 mg PO TID 09/19/20 09/19/20 Esomeprazole Magnesium 40 mg PO DAILY 09/19/20 09/19/20 SUMAtriptan succinate [Imitrex] 100 mg PO BID PRN 09/19/20 09/19/20 clonazePAM [KlonoPIN] 1 mg PO HS PRN 09/19/20 09/19/20 oxyCODONE-APAP 10-325MG [Percocet 1 tab PO BID PRN 09/19/20 09/19/20 10-325 mg] Allergies Allergy/AdvReac Type Severity Reaction Status Date / Time prednisone Allergy Severe Rash/Hives, Verified 05/07/23 16:52 Shortness of breath aspirin Allergy Anaphylaxis Verified 05/07/23 16:52 azithromycin Allergy Rash/Hives Verified 05/07/23 16:52 ibuprofen Allergy Rash/Hives Verified 05/07/23 16:52 ketorolac tromethamine Allergy Dyspnea Verified 05/07/23 16:52 [From Toradol] methylprednisolone Allergy Anaphylaxis Verified 05/07/23 16:52 sulfamethoxazole Allergy Dyspnea, Verified 05/07/23 16:52 [From Bactrim] RASH trimethoprim [From Bactrim] Allergy Dyspnea, Verified 05/07/23 16:52 RASH Review of Systems ROS Other: All systems not noted in ROS Statement are negative. <Suzan Olivas - Last Filed: 05/07/23 16:54> ROS Other: All systems not noted in ROS Statement are negative. <Beatriz Hutchison - Last Filed: 05/09/23 11:26> ROS Statement: Those systems with pertinent positive or pertinent negative responses have been documented in the HPI. Past Medical History Past Medical History: Cancer, Fibromyalgia, Musculoskeletal Disorder Additional Past Medical History / Comment(s): PRE-CA UTERUS, SKIN CA. CHRONIC Neck, Back Pain. VARICOSE VEINS. PAIN RT EAR D/T CHONDRODERMATITIS. autoimmune disease History of Any Multi-Drug Resistant Organisms: None Reported Past Surgical History: Appendectomy, Breast Surgery, Hysterectomy, Orthopedic Surgery, Uterine Ablation Additional Past Surgical History / Comment(s): RT WRIST; EXC LUMP NECK. LAPAROSCOPIC PROC. BREAST REDUCTION. Past Anesthesia/Blood Transfusion Reactions: Motion Sickness, Postoperative Nausea & Vomiting (PONV) Past Psychological History: Anxiety, Depression Smoking Status: Never smoker Past Alcohol Use History: Occasional Past Drug Use History: None Reported - Past Family History Mother Family Medical History: Cancer Father Family Medical History: Deep Vein Thrombosis (DVT) <Suzan Olivas - Last Filed: 05/07/23 16:54> General Exam Limitations: no limitations <Suzan Olivas - Last Filed: 05/07/23 16:54> Limitations: no limitations General appearance: alert, in no apparent distress Head exam: Present: atraumatic, normocephalic, normal inspection Eye exam: Present: normal appearance, PERRL, EOMI. Absent: scleral icterus, conjunctival injection, periorbital swelling ENT exam: Present: normal exam, mucous membranes moist Neck exam: Present: normal inspection. Absent: tenderness, meningismus, lymphadenopathy Respiratory exam: Present: normal lung sounds bilaterally. Absent: respiratory distress, wheezes, rales, rhonchi, stridor Cardiovascular Exam: Present: regular rate, normal rhythm, normal heart sounds. Absent: systolic murmur, diastolic murmur, rubs, gallop, clicks GI/Abdominal exam: Present: soft, normal bowel sounds. Absent: distended, tenderness, guarding, rebound, rigid Extremities exam: Present: normal inspection, full ROM, normal capillary refill. Absent: tenderness, pedal edema, joint swelling, calf tenderness Back exam: Present: normal inspection Neurological exam: Present: alert, oriented X3, CN II-XII intact, normal gait, other (Sensation to light touch intact, 5 over 5 strength in upper and lower extremities). Absent: motor sensory deficit Psychiatric exam: Present: normal affect, normal mood Skin exam: Present: warm, dry, intact, normal color. Absent: rash <Beatriz Hutchison - Last Filed: 05/09/23 11:26> - General Exam Comments Initial Comments: Visual Physical Exam Vital signs reviewed General: Well-appearing, nontoxic, no acute distress. Head: Normocephalic, atraumatic Eyes: PERRLA, EOMI ENT: Airway patent Chest: Nonlabored breathing Skin: No visual rash, normal skin tone Neuro: Alert and oriented 3 Musculoskeletal: No gross abnormalities (Suzan Olivas) Course Vital Signs 05/07/23 05/07/23 16:50 21:56 Temperature 98.5 F Pulse Rate 71 68 Respiratory 20 18 Rate Blood Pressure 114/78 105/68 O2 Sat by Pulse 99 99 Oximetry Medical Decision Making <Suzan Olivas - Last Filed: 05/07/23 16:54> - Lab Data Result diagrams: 05/07/23 19:10 05/07/23 19:10 <Beatriz Hutchison - Last Filed: 05/09/23 11:26> - Medical Decision Making I performed the quick note portion of the exam. Electronically signed by Suzan Olivas PA-C (Suzan Olivas) Was pt. sent in by a medical professional or institution (TANIYA Gómez, [employer] SUPERVISOR, urgent care, hospital, or [facility]...) When possible be specific @ -No Did you speak to anyone other than the patient for history (EMS, parent, family, police, friend...)? What history was obtained from this source @ -No Did you review nursing and triage notes (agree or disagree)? Why? @ -I reviewed and agree with nursing and triage notes Were old charts reviewed (outside hosp., previous admission, EMS record, old EKG, old radiological studies, urgent care reports/EKG's, [facility] records)? Report findings @ -Yes prior MRA of brain reviewed Differential Diagnosis (chest pain, altered mental status, abdominal pain women, abdominal pain men, vaginal bleeding, weakness, fever, dyspnea, syncope, headache, dizziness, GI bleed, back pain, seizure, CVA, palpatations, mental health, musculoskeletal)? @ -Differential Headache: Migraine, tension, cluster, carbon monoxide, central venous thrombosis, pension karma temporal arteritis, acute closure glaucoma, intercranial hemorrhage, mastoiditis, sinusitis, head injury, this is not meant to be an all-inclusive list. EKG interpreted by me (3pts min.). @ -None X-rays interpreted by me (1pt min.). @ -None done CT interpreted by me (1pt min.). @ -CT brain and C-spine shows no acute process U/S interpreted by me (1pt. min.). @ -None done What testing was considered but not performed or refused? (CT, X-rays, U/S, la bs)? Why? @ -CTA considered of head and neck based on patient's history, discussed with patient the necessity of this test, patient refused and wanted to be discharged. What meds were considered but not given or refused? Why? @ -None Did you discuss the management of the patient with other professionals (professionals i.e. , PA, [employer]ING [employer]PARTMENT SUPERVISOR, lab, RT, psych nurse, protective services social worker, hr advisor, teacher, welfare officer, case advocate)? Give summary @ -No Was smoking cessation discussed for >3mins.? @ -No Was critical care preformed (if so, how long)? @ -No Were there social determinants of health that impacted care today? How? (Homelessness, low income, unemployed, alcoholism, drug addiction, transportation, low edu. Level, literacy, decrease access to med. care, alf, rehab)? @ -No Was there de-escalation of care discussed even if they declined (Discuss DNR or withdrawal of care, Hospice)? DNR status @ -No What co-morbidities impacted this encounter? (DM, HTN, Smoking, COPD, CAD, Cancer, CVA, ARF, Chemo, Hep., AIDS, mental health diagnosis, sleep apnea, morbid obesity)? @ -None Was patient admitted / discharged? Hospital course, mention meds given and route, prescriptions, significant lab abnormalities, going to OR and other pertinent info. @ -Discharged. Patient presented to the emergency department chief complaint of migraine headache. She given Benadryl, Reglan, fluids she did report some slight improvement in her symptoms. CT brain and C-spine was performed which showed no acute process. CTA was considered and discussed with patient. Patient declined this test and wanted to be discharged home. Discussed the risks with patient and she expresses understanding. She did not want any more pain medication and wished to be discharged home. She is going to follow up with her neurologist at [facility]. Patient stable at time of discharge. Case discussed with Dr. Mantilla Undiagnosed new problem with uncertain prognosis? @ -No Drug Therapy requiring intensive monitoring for toxicity (Heparin, Nitro, Insulin, Cardizem)? @ -No Were any procedures done? @ -No Diagnosis/symptom? @ -migraine Acute, or Chronic, or Acute on Chronic? @ -acute Uncomplicated (without systemic symptoms) or Complicated (systemic symptoms)? @ -uncomplicated Side effects of treatment? @ -No Exacerbation, Progression, or Severe Exacerbation? @ -No Poses a threat to life or bodily function? How? (Chest pain, [place], [place], pneumonia, PE, COPD, DKA, ARF, appy, cholecystitis, CVA, Diverticulitis, Homicidal, Suicidal, threat to staff... and all critical care pts) @ -No (Beatriz Hutchison) - Lab Data Lab Results 05/07/23 05/07/23 05/07/23 Range/Units 19:10 19:10 19:10 WBC 6.7 (3.8-10.6) k/uL RBC 4.15 (3.80-5.40) m/uL Hgb 13.8 (11.4-16.0) gm/dL Hct 40.5 (34.0-46.0) % MCV 97.5 (80.0-100.0) fL MCH 33.3 (25.0-35.0) pg MCHC 34.2 (31.0-37.0) g/dL RDW 12.9 (11.5-15.5) % Plt Count 322 (150-450) k/uL MPV 6.9 Neutrophils % 52 % Lymphocytes % 38 % Monocytes % 7 % Eosinophils % 1 % Basophils % 1 % Neutrophils # 3.5 (1.3-7.7) k/uL Lymphocytes # 2.5 (1.0-4.8) k/uL Monocytes # 0.4 (0-1.0) k/uL Eosinophils # 0.1 (0-0.7) k/uL Basophils # 0.0 (0-0.2) k/uL PT 10.2 (10.0-12.5) sec INR 0.9 (<1.2) APTT 24.9 (22.0-30.0) sec Sodium (137-145) mmol/L Potassium (3.5-5.1) mmol/L Chloride (98-107) mmol/L Carbon Dioxide (22-30) mmol/L Anion Gap mmol/L BUN (7-17) mg/dL Creatinine (0.52-1.04) mg/dL Est GFR (CKD-EPI)AfAm (>60 ml/min/1.73 sqM) Est GFR (CKD-EPI)NonAf (>60 ml/min/1.73 sqM) Glucose (74-99) mg/dL Calcium (8.4-10.2) mg/dL Magnesium (1.6-2.3) mg/dL Total Bilirubin (0.2-1.3) mg/dL AST (14-36) U/L ALT (4-34) U/L Alkaline Phosphatase (38-126) U/L Total Protein (6.3-8.2) g/dL Albumin (3.5-5.0) g/dL Urine Color Light Yellow Urine Appearance Clear (Clear) Urine pH 5.5 (5.0-8.0) Ur Specific Steele 1.025 (1.001-1.035) Urine Protein Negative (Negative) Urine Glucose (UA) Negative (Negative) Urine Ketones Negative (Negative) Urine Blood Small H (Negative) Urine Nitrite Negative (Negative) Urine Bilirubin Negative (Negative) Urine Urobilinogen <2.0 (<2.0) mg/dL Ur Leukocyte Esterase Negative (Negative) Urine RBC 3 (0-5) /hpf Urine WBC 1 (0-5) /hpf Ur Squamous Epith Cells 8 H (0-4) /hpf Urine Bacteria Rare H (None) /hpf Urine Mucus Moderate H (None) /hpf Urine HCG, Qual (Not Detectd) 05/07/23 05/07/23 Range/Units 19:10 19:10 WBC (3.8-10.6) k/uL RBC (3.80-5.40) m/uL Hgb (11.4-16.0) gm/dL Hct (34.0-46.0) % MCV (80.0-100.0) fL MCH (25.0-35.0) pg MCHC (31.0-37.0) g/dL RDW (11.5-15.5) % Plt Count (150-450) k/uL MPV Neutrophils % % Lymphocytes % % Monocytes % % Eosinophils % % Basophils % % Neutrophils # (1.3-7.7) k/uL Lymphocytes # (1.0-4.8) k/uL Monocytes # (0-1.0) k/uL Eosinophils # (0-0.7) k/uL Basophils # (0-0.2) k/uL PT (10.0-12.5) sec INR (<1.2) APTT (22.0-30.0) sec Sodium 139 (137-145) mmol/L Potassium 3.7 (3.5-5.1) mmol/L Chloride 105 (98-107) mmol/L Carbon Dioxide 24 (22-30) mmol/L Anion Gap 10 mmol/L BUN 10 (7-17) mg/dL Creatinine 0.90 (0.52-1.04) mg/dL Est GFR (CKD-EPI)AfAm 90 (>60 ml/min/1.73 sqM) Est GFR (CKD-EPI)NonAf 78 (>60 ml/min/1.73 sqM) Glucose 89 (74-99) mg/dL Calcium 9.5 (8.4-10.2) mg/dL Magnesium 2.1 (1.6-2.3) mg/dL Total Bilirubin 0.4 (0.2-1.3) mg/dL AST 22 (14-36) U/L ALT 16 (4-34) U/L Alkaline Phosphatase 43 (38-126) U/L Total Protein 7.3 (6.3-8.2) g/dL Albumin 4.3 (3.5-5.0) g/dL Urine Color Urine Appearance (Clear) Urine pH (5.0-8.0) Ur Specific Steele (1.001-1.035) Urine Protein (Negative) Urine Glucose (UA) (Negative) Urine Ketones (Negative) Urine Blood (Negative) Urine Nitrite (Negative) Urine Bilirubin (Negative) Urine Urobilinogen (<2.0) mg/dL Ur Leukocyte Esterase (Negative) Urine RBC (0-5) /hpf Urine WBC (0-5) /hpf Ur Squamous Epith Cells (0-4) /hpf Urine Bacteria (None) /hpf Urine Mucus (None) /hpf Urine HCG, Qual Not Detected (Not Detectd) Disposition <Suzan Olivas - Last Filed: 05/07/23 16:54> Is patient prescribed a controlled substance at d/c from ED?: No <Beatriz Hutchison - Last Filed: 05/09/23 11:26> Clinical Impression: Migraine Disposition: HOME SELF-CARE Condition: Stable Instructions (If sedation given, give patient instructions): Migraine Headache (ED) Additional Instructions: Please follow up with your primary care provider and neurologist. Return to the emergency department for new or worsening symptoms. Referrals: Yan Bolton DO [Primary Care Provider] - 1-2 days
[2023-05-07] MEDS ORDERED: ONDANSETRON ODT 4 MG TAB PO STA (17:00)
[2023-05-07] MEDS ORDERED: METOCLOPRAMIDE 5 MG/ML 2 ML VIAL IVP STA (18:29)
[2023-05-07] MEDS ORDERED: SODIUM CHLORIDE 0.9% 1,000 ML IV STA (18:29)
[2023-05-07] MEDS ORDERED: diphenhydrAMINE 50 MG/ML 1 ML VIAL IVP STA (18:29)
[2023-05-07 19:26] LABS: Basophils % (A) 1 %; Eosinophils # (A) 0.1 k/uL (0-0.7); Eosinophils % (A) 1 %; HCT 40.5 % (34.0-46.0); HGB 13.8 gm/dL (11.4-16.0); Lymphocytes # (A) 2.5 k/uL (1.0-4.8); Lymphocytes % (A) 38 %; MCH 33.3 pg (25.0-35.0); MCHC 34.2 g/dL (31.0-37.0); MCV 97.5 fL (80.0-100.0); Mean Platelet Volume 6.9; Monocytes # (A) 0.4 k/uL (0-1.0); Monocytes % (A) 7 %; Neutrophils # (A) 3.5 k/uL (1.3-7.7); Neutrophils % (A) 52 %; Platelet Count 322 k/uL (150-450); RBC 4.15 m/uL (3.80-5.40); RDW 12.9 % (11.5-15.5); WBC 6.7 k/uL (3.8-10.6)
[2023-05-07 19:35] LABS: ALT 16 U/L (4-34); AST 22 U/L (14-36); African American GFR (CKD) 90 (>60 ml/min/1.73 sqM); Albumin 4.3 g/dL (3.5-5.0); Alkaline Phosphatase 43 U/L (38-126); Anion Gap 10 mmol/L; Blood Urea Nitrogen 10 mg/dL (7-17); Calcium 9.5 mg/dL (8.4-10.2); Carbon Dioxide 24 mmol/L (22-30); Chloride 105 mmol/L (98-107); Glucose 89 mg/dL (74-99); INR 0.9 (<1.2); Magnesium 2.1 mg/dL (1.6-2.3); Non-African American GFR(CKD) 78 (>60 ml/min/1.73 sqM); Partial Thromboplastin Time 24.9 sec (22.0-30.0); Potassium 3.7 mmol/L (3.5-5.1); Prothrombin Time 10.2 sec (10.0-12.5); Sodium 139 mmol/L (137-145); Total Bilirubin 0.4 mg/dL (0.2-1.3); Total Protein 7.3 g/dL (6.3-8.2)
--- NOTE | 2023-05-07 19:35 | CT ---
EXAMINATION TYPE: CT brain cspine wo con CT DLP: 1511.8 mGycm, Automated exposure control for dose reduction was used. DATE OF EXAM: 05/07/2023 6:16 PM COMPARISON: None. CLINICAL INDICATION:Female, 47 years old with history of pain; Headache, hx aneurysm. Pain also in ne ck. TECHNIQUE: Brain: Multiple axial CT images of the brain were obtained without IV contrast. Cspine: Axial CT images from the skull base to the inferior aspect of T2 we obtained without intraven ous contrast. Coronal and sagittal reformatted images were also reviewed. FINDINGS: Brain: Extra-axial spaces: No abnormal extra-axial fluid collections. Ventricular system: Within normal limits Cerebral parenchyma: No acute intraparenchymal hemorrhage or mass effect. No significant atrophy. No loss of shannon-white matter distinction to suggest acute infarct. No significant white matter hypoatte nuation. Cerebellum: No acute abnormality. Mass effect: No evidence of midline shift. Intracranial vasculature: Unremarkable. Soft tissues: Unremarkable. Calvarium/osseous structures: No acute calvarial fracture seen. Paranasal sinuses and mastoid air cells: Clear. Visualized orbits: Orbital contents appear grossly intact. MRI is more sensitive for detecting acute processes such as infarct, and may be considered if clinica lly warranted. Cervical spine: Fracture: None. Osseous structures, spinal canal/neural foramina: Unremarkable Vertebral alignment: Within normal limits. Neck soft tissues: Prevertebral soft tissues are within normal limits. No other significant findings. Other: Lung apices show no acute infiltrate or pneumothorax. IMPRESSION: CT head: No acute intracranial process. CT cervical spine: No evidence of cervical spine fracture.
[2023-05-07 19:48] LABS: Appearance,Urine Clear (Clear); Bacteria,Urine Rare /hpf; Bilirubin,Urine Negative (Negative); Blood,Urine Small (Negative); Color,Urine Light Yellow; Glucose,Urine (UA) Negative (Negative); Ketones,Urine Negative (Negative); Leukocyte Esterase,Urine Negative (Negative); Mucus,Urine Moderate /hpf; Nitrite,Urine Negative (Negative); PH, Urine 5.5 (5.0-8.0); Protein,Urine Negative (Negative); RBC,Urine 3 /hpf (0-5); Specific Gravity,Urine 1.025 (1.001-1.035); Squamous Epithelial Cell,Urine 8 /hpf (0-4); Urobilinogen,Urine <2.0 mg/dL (<2.0); WBC,Urine 1 /hpf (0-5)
[2023-05-07 22:00] VITALS: BP 105/68; PULSE 68; RESP 18
== END 2023-05-07 23:46 | disposition home or self-care (01) ==
LOC: EC 16:33
DX: G43.909 Migraine, unspecified, not intractable, without status migrainosus (principal); F41.9 Anxiety disorder, unspecified; F32.A Depression, unspecified; Z79.899 Other long term (current) drug therapy; Z88.2 Allergy status to sulfonamides; Z88.6 Allergy status to analgesic agent; Z88.5 Allergy status to narcotic agent; Z88.1 Allergy status to other antibiotic agents; Z88.8 Allergy status to other drugs, medicaments and biological substances
CPT/HCPCS: 99284 ×2; 96374 ×2; 96375 ×2; 96361 ×2; 36415; 80053; 83735; 85025; 85610; 85730; 81001; 81025; 72125; 70450; J1200; J2765

== ENCOUNTER 2023-08-13 06:37 | Day surgery (SDC) | payer BC, MEDICARE ==
[2023-08-11 16:42] VITALS: BMI 26.2
[~2023-08-13 06:37] MED LIST changes: -DEXAMETHASONE SOD PHOSPHATE 10 MG/ML 1 ML VIAL IV ONE; -HYDROmorphone 1 MG/ML 1 ML SYRINGE IVP PRN; -LIDOCAINE 1% 20 ML VIAL (10MG/ML) FOR IV START INTRADERMA PRN; -ONDANSETRON 4 MG/2 ML VIAL IVP ONE; -SCOPOLAMINE 1.5MG/72HR PATCH TRANSDERM ONE
[2023-08-13] MEDS: LACTATED RINGERS 1,000 ML IV ONE (06:55)
[2023-08-13] MEDS ORDERED: ONDANSETRON 4 MG/2 ML VIAL ONE (07:14)
[2023-08-13] MEDS: ONDANSETRON 4 MG/2 ML VIAL IVP ONE (07:15)
[2023-08-13] MEDS ORDERED: MIDAZOLAM 2 MG/2 ML VIAL ONE (07:23)
[2023-08-13] MEDS ORDERED: LIDOCAINE 1% INJ 10MG/ML (20 ML MDV) ONE (07:23)
[2023-08-13] MEDS ORDERED: PROPOFOL 10 MG/ML 20 ML VIAL IV ONE (07:23)
[2023-08-13] MEDS ORDERED: fentaNYL (PF) 50 MCG/ML 2 ML AMP ONE (07:23)
--- NOTE | 2023-08-13 07:58 | P.PCN ---
Date of Procedure: 08/13/23 Procedure(s) Performed: Brief history: Patient is a pleasant 47-year-old white male scheduled for an elective upper endoscopy as well as colonoscopy as a part of evaluation of long-standing history of GERD and screening for colon cancer/family history of colon cancer. Her mother was diagnosed with colon cancer at age 60. Procedure performed: Esophagogastroduodenoscopy with biopsy Colonoscopy Preoperative diagnosis: Long-standing history of GERD Screening for colon cancer/family history of colon cancer Anesthesia: MAC Procedure: After informed consent was obtained from the patient was brought into the endoscopy unit and IV sedation was administered by anesthesia under continuous monitoring. Initially upper endoscopy was done. The Olympus GF 160 video endoscope was inserted inserted into the mouth and esophagus intubated without any difficulty and was gradually advanced into the stomach and duodenum and carefully examined. The bulb and second part of the duodenum appeared normal. The scope was then withdrawn into the stomach adequately insufflated with air and upon careful examination the antrum and body, had diffuse gastritis and biopsies were done from this area. Multiple polyps noted in the gastric body which were biopsied. cardia and fundus appeared normal. The scope was then withdrawn into the esophagus. The GE junction was located at 40 cm to the incisors. It appeared regular with no erythema erosions or ulcerations. Rest of the esophagus appeared normal. Patient tolerated the procedure well. At this time the patient continued to remain sedation. Initial digital rectal examination was normal. Olympus CF 160 video colonoscope was then inserted into the rectum and gradually advanced to the cecum without any difficulty. Careful examination was performed as the scope was gradually being withdrawn. The prep was excellent. The cecum, ascending colon, transverse colon, descending colon, sigmoid colon and rectum appeared normal. Retroflexion was performed in the rectum and no lesions were noted. Patient tolerated the procedure well. Impression: 1. Upper endoscopy revealed diffuse antral gastritis and multiple gastric polyps 2. Colonnoscopy was within normal limits with no evidence of colorectal neoplasia Recommendations: Findings of this examination were discussed with the patient as well as her family. She was advised to follow with the biopsy sites. Continue with Nexium 20 mg before dinnertime and Pepcid at bedtime and follow antireflux measures. Recommend repeat screening colonoscopy in 5 years because of the family history of colon cancer.
[2023-08-13 08:17] VITALS: BP 119/60; PULSE 83; RESP 16
== END 2023-08-13 08:32 | disposition home or self-care (01) ==
LOC: ORWHC2ENDO 06:37
PROVIDERS: ATTEND Internal Medicine Gastroenterology
DX: Z12.11 Encounter for screening for malignant neoplasm of colon (principal); K29.50 Unspecified chronic gastritis without bleeding; K21.00 Gastro-esophageal reflux disease with esophagitis, without bleeding; K31.7 Polyp of stomach and duodenum; Z80.0 Family history of malignant neoplasm of digestive organs; Z88.1 Allergy status to other antibiotic agents; Z88.2 Allergy status to sulfonamides; Z88.6 Allergy status to analgesic agent; Z88.8 Allergy status to other drugs, medicaments and biological substances; Z90.49 Acquired absence of other specified parts of digestive tract
CPT/HCPCS: 88305; 45378; 43239; J2250; J2405; J2001; J3010; J2704